=== PATIENT | female | born 1965 | race Caucasian/White ===

== ENCOUNTER 2024-07-01 11:24 | Observation (INO) | payer OTHER ==
[2024-07-01 12:07] LABS: Absolute Neutrophil Ct (ANC) 2.99 x10^3/uL (1.56-6.13); BASOPHIL % 1.2 % (0.1-1.2); Basophil (Absolute #) 0.07 x10^3/uL (0.01-0.08); Eosinophil (Absolute #) 0.06 x10^3/uL (0.04-0.36); Hematocrit 24.9 % (34.1-44.9); IMMATURE GRAN # 0.02 x10^3u/L (0.001-0.031); IMMATURE GRAN % 0.3 % (0.001-0.429); Lymphocyte (Absolute #) 2.21 x10^3/uL (1.18-3.74); Lymphocytes % 38.5 % (19.3-51.7); Mean Cell Volume 59.3 fL (79.4-94.8); Mean Corpuscular Hgb Concent. 25.3 g/dL (32.2-35.5); Mean Platelet Volume 9.9 fL (9.4-12.3); Monocyte (Absolute #) 0.39 x10^3/uL (0.24-0.86); Monocytes % 6.8 % (4.7-12.5); Neutrophil % 52.2 % (34.0-71.1); Platelet Count 441 x10^3/uL (182-369); Red Cell Distribution Width 19.7 % (11.7-14.4); White Blood Count 5.7 x10^3/uL (3.98-10.04)
[2024-07-01 12:12] LABS: Hemoglobin 6.3 g/dL (11.2-15.7)
[2024-07-01 12:15] LABS: ISTAT K 3.6 mmol/L (3.5-4.9); ISTAT iCA 1.23 mmol/L (1.12-1.32)
[2024-07-01 12:16] LABS: ISTAT CREA 0.8 mg/dL (0.6-1.3)
[2024-07-01 12:32] LABS: INR 0.93 (0.8-3.0); PROTIME 10.2 SECONDS (9.4-12.5); PTT < 20.0 SECONDS (25.1-36.5)
[2024-07-01] MEDS ORDERED: PROTONIX 40 MG IV IV ONE (12:34)
[2024-07-01] MEDS: PROTONIX 40 MG IV IV ONE (12:37)
--- NOTE | 2024-07-01 12:48 | ERPHSYRPT ---
- History of Present Illness Time Seen by Provider: 07/01/24 11:40 Source: patient Exam Limitations: no limitations Patient Subjective Stated Complaint: Pt reports she was called by Dr Aida Powell's office and instructed to come to the ED for abnormal hgb result on blood work that was drawn on 06/30/24. Triage Nursing Assessment: Pt alert and oriented x3. Respirations easy/nonlabored. Skin w/p/d. Ambulated to ED cot without difficulty. Reports she does experience some fatigue and shortness of breath at rest and with exertion as of late. Denies any dizziness, lightheaded. Pt denies ever having transfusion in the past. Physician History: 59-year-old female with history of GERD, hypertension, chronic anemia presented in the ER after primary care had blood work done yesterday which showed hemoglobin of 6.6. Patient denies any chest pain or palpitations but reports feeling fatigued and tired/woren out with minimal activity. Does report having history of acid reflux/heartburn send take Nexium but not well-controlled. Has history of dark stool which she attributes to iron tablets. No abdominal pain nausea or vomiting. 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 Allergies/Adverse Reactions: No Known Drug Allergies Allergy (Verified 07/01/24 11:38) Home Medications: Benazepril HCl [Lotensin] 10 mg PO DAILY 04/14/13 [History] Ferrous Sulfate 325 mg [Feosol 325 mg] 325 mg PO TID 04/14/13 [History] Levothyroxine Sodium 75 Mcg [Synthroid 75 Mcg] 150 mcg PO DAILY 04/14/13 [History] Trazodone HCl 50 mg [Desyrel 50 mg] 50 mg PO HS 04/15/13 [History] Acetaminophen 500 mg [Tylenol Extra Strength 500 mg] 100 mg PO Q6HPRN PRN 07/01/24 [History] Albuterol Sulfate [Albuterol Sulfate Hfa] 1 puff IH Q4H PRN PRN 07/01/24 [History] Budesonide/Glycopyr/Formoterol [Breztri Aerosphere Inhaler] 2 puff IH BID 07/01/24 [History] Esomeprazole Magnesium [Nexium 24Hr] 1 cap PO DAILY 07/01/24 [History] Ezetimibe 10 mg [Zetia 10 MG] 1 tab PO DAILY 07/01/24 [History] Hx Tetanus, Diphtheria Vaccination/Date Given: (unknown) Hx Influenza Vaccination/Date Given: No Travel Risk - International Travel Have you traveled outside of the country in past 3 weeks: No - Emerging Infectious Disease Are you exhibiting symptoms associated with any current EIDs: No - Review of Systems Constitutional: Fatigue, Weakness Eyes: No Symptoms Ears, Nose, & Throat: No Symptoms Respiratory: Dyspnea Cardiac: No Symptoms Abdominal/Gastrointestinal: No Symptoms Genitourinary Symptoms: No Symptoms Musculoskeletal: No Symptoms Skin: No Symptoms Neurological: No Symptoms Hematologic/Lymphatic: Anemia Immunological/Allergic: No Symptoms - Past Medical History Pertinent Past Medical History: Yes Neurological History: Migraines ENT History: No Pertinent History Cardiac History: High Cholesterol, Hypertension Respiratory History: No Pertinent History Endocrine Medical History: Hypothyroidism Musculoskeletal History: No Pertinent History GI Medical History: Hernia, Other History: No Pertinent History Psycho-Social History: No Pertinent History Female Reproductive Disorders: No Pertinent History Other Medical History: anemia,heartburn - Past Surgical History Past Surgical History: Yes Neuro Surgical History: No Pertinent History Cardiac: No Pertinent History Respiratory: No Pertinent History Gastrointestinal: No Pertinent History Genitourinary: No Pertinent History Musculoskeletal: Orthopedic Surgery Female Surgical History: Section Other Surgical History: rt ankle plates and screws placed-fx - Social History Smoking Status: Former smoker Exposure to second hand smoke: No Drug Use: none - Social Determinants of Health Will the patient participate in the screening: Declined to provide - Nursing Vital Signs Nursing Vital Signs: Initial Vital Signs Temperature 97.5 F 07/01/24 11:31 Pulse Rate 83 07/01/24 11:31 Respiratory Rate 16 07/01/24 11:31 Blood Pressure 151/64 07/01/24 11:31 O2 Sat by Pulse Oximetry 100 07/01/24 11:31 Pain Scale Pain Intensity 1 - Physical Exam General Appearance: no apparent distress, alert Eye Exam: pale conjunctivae Ears, Nose, Throat Exam: normal ENT inspection Neck Exam: normal inspection, non-tender, supple, full range of motion Respiratory Exam: normal breath sounds, lungs clear Cardiovascular Exam: regular rate/rhythm, normal heart sounds Gastrointestinal/Abdomen Exam: soft, normal bowel sounds, No tenderness Back Exam: normal inspection, normal range of motion Extremity Exam: normal inspection, normal range of motion Neurologic Exam: alert, oriented x 3, cooperative, lopper II-XII nml as tested Skin Exam: normal color SpO2 Interpretation: normal SpO2: 100 O2 Delivery: Room Air Ordered Tests: Active Orders 24 hr Category Date Time Status Bedrest ROUTINE Activity 07/01/24 14:20 Active Up With Assistance ROUTINE Activity 07/01/24 14:20 Active Call Admit Doctor for Orders ON ADMISSION Care 07/01/24 14:20 Active Code Status Order ROUTINE Care 07/01/24 14:20 Active Fall Protocol ROUTINE Care 07/01/24 14:[address] in Observation ROUTINE Care 07/01/24 14:20 Active Telemetry q6h Care 07/01/24 14:20 Active UA W/RFX UR CULTURE Stat Lab 07/01/24 12:44 Completed Pulse Oximetry CONTINUOUS RT 07/01/24 14:20 Completed Medication Summary Generic Name Dose Route Start Last Admin Trade Name Freq PRN Reason Stop Dose Admin Acetaminophen 650 mg 07/01/24 15:46 07/02/24 11:34 Acetaminophen 325 Mg Tablet PO 07/31/24 15:45 650 mg Q4H PRN PRN Administration PAIN, FEVER, HEADACHE Albuterol Sulfate 1 puff 07/01/24 15:49 Albuterol Common Canister Inhaler IH 07/31/24 15:48 Q4H PRN PRN SHORTNESS OF BREATH Benazepril HCl 10 mg 07/02/24 10:00 07/02/24 09:44 Benazepril Hcl 10 Mg Tablet PO 08/01/24 09:59 10 mg DAILY NEETU Administration Ezetimibe 10 mg 07/02/24 10:00 07/02/24 09:45 Ezetimibe 10 Mg Tab PO 08/01/24 09:59 10 mg DAILY NEETU Administration Ferrous Sulfate 325 mg 07/01/24 16:00 07/02/24 09:46 Ferrous Sulfate 325 Mg Tablet PO 07/31/24 15:59 325 mg TID NEETU Administration Iron Sucrose 200 mg/ Sodium 110 mls @ 220 mls/hr 07/02/24 10:00 07/02/24 09:44 Chloride IV 07/10/24 10:29 220 mls/hr Q48H NEETU Administration Levothyroxine Sodium 150 mcg 07/02/24 10:00 07/02/24 09:46 Levothyroxine Sodium 150 Mcg Tablet PO 08/01/24 09:59 150 mcg DAILY NEETU Administration Ondansetron HCl 4 mg 07/01/24 15:46 Ondansetron Hcl 4 Mg/2 Ml Vial IV 07/31/24 15:45 Q6H PRN PRN NAUSEA/VOMITING Pantoprazole Sodium 40 mg 07/01/24 22:00 07/02/24 09:44 Pantoprazole 40 Mg Vial IV 07/31/24 21:59 40 mg BID NEETU Administration Trazodone HCl 50 mg 07/01/24 22:00 07/01/24 22:56 Trazodone Hcl 50 Mg Tablet PO 07/31/24 21:59 50 mg HS NEETU Administration Discontinued Medications Generic Name Dose Route Start Last Admin Trade Name Freq PRN Reason Stop Dose Admin Furosemide 20 mg 07/01/24 23:00 07/01/24 22:57 Furosemide 20 Mg/Vial IV 07/01/24 23:01 20 mg ONCE ONE Administration Pantoprazole Sodium 80 mg/ 500 mls @ 50 mls/hr 07/01/24 12:30 07/01/24 13:02 Sodium Chloride IV 07/31/24 12:29 50 ml/hr .Q10H NEETU 50 mls/hr Administration Sodium Chloride Confirm 07/01/24 16:53 Sodium Chloride 0.9% 1000 Ml Administered 07/01/24 16:54 Dose 1,000 mls @ ud .ROUTE [employer] ONE Miscellaneous Information 1 each 07/01/24 16:15 Medication Intervention 1 Each Each 07/31/24 16:14 .RN TO CHECK NEETU Pantoprazole Sodium 40 mg 07/01/24 12:18 07/01/24 12:37 Pantoprazole 40 Mg Vial IV 07/01/24 12:19 40 mg STAT ONE Administration Pantoprazole Sodium Confirm 07/01/24 12:34 Pantoprazole 40 Mg Vial Administered 07/01/24 12:35 Dose 40 mg IV .STK-MED ONE Lab/Rad Data: Laboratory Result Diagrams 07/01/24 11:51 07/01/24 11:51 Laboratory Results 01/08/25 01/08/25 01/08/25 Range/Units 12:51 12:51 12:44 WBC (3.98-10.04) x10^3/uL RBC (3.93-5.22) x10^6/uL Hgb (11.2-15.7) g/dL Hct (34.1-44.9) % MCV (79.4-94.8) fL MCH (25.6-32.2) pg MCHC (32.2-35.5) g/dL RDW (11.7-14.4) % Plt Count (182-369) x10^3/uL MPV (9.4-12.3) fL Gran % (34.0-71.1) % Immature Gran % (Auto) (0.001-0.429) % Nucleat RBC Rel Count (0.00-0.2) % Eos # (Auto) (0.04-0.36) x10^3/uL Immature Gran # (Auto) (0.001-0.031) x10^3u/L Absolute Lymphs (auto) (1.18-3.74) x10^3/uL Absolute Monos (auto) (0.24-0.86) x10^3/uL Absolute Nucleated RBC (0.00-0.012) x10^3u/L Lymphocytes % (19.3-51.7) % Monocytes % (4.7-12.5) % Eosinophils % (0.7-5.8) % Basophils % (0.1-1.2) % Absolute Granulocytes (1.56-6.13) x10^3/uL Basophils # (0.01-0.08) x10^3/uL PT (9.4-12.5) SECONDS INR (0.8-3.0) APTT (25.1-36.5) SECONDS Sodium Direct (138-146) mmol/L Potassium (3.5-4.9) mmol/L Chloride (98-109) mmol/L Carbon Dioxide (24-29) mmol/L Venous BUN (8-26) mg/dL Creatinine (0.6-1.3) mg/dL Glucose (70-105) mg/dL Ionized Calcium (1.12-1.32) mmol/L Iron 28 L (37-170) ug/dL TIBC 546 H (265-462) ug/dL Iron Saturation 5 L (20-39) % Ferritin 3.19 L (11.1-264) ng/mL Vitamin B12 376 (239-931) pg/mL Folic Acid 6.76 (2.76 - >20) ng/mL Urine Color Yellow (Yellow) Urine Appearance Clear (Clear) Urine pH 7.0 (4.6-8.0) Ur Specific Wentworth <=1.005 (1.005-1.030) Urine Protein Negative (Negative) Urine Glucose (UA) Negative (Negative) mg/dL Urine Ketones Negative (Negative) Urine Blood Negative (Negative) Urine Nitrite Negative (Negative) Urine Bilirubin Negative (Negative) Urine Urobilinogen 0.2 (0.2) mg/dL Ur Leukocyte Esterase Negative (Negative) U Hyaline Cast (Auto) NONE SEEN (0-2) /LPF Urine Microscopic RBC 0-2 (0-5) /HPF Urine Microscopic WBC 0-2 (0-5) /HPF Ur Epithelial Cells None Seen (None Seen) /HPF Urine Bacteria None Seen (None Seen) /HPF Urine Culture Reflexed NO (NO) Stl Occult Blood (IFOB) (NEGATIVE) Slides for Path Review ABO Group Rh Factor Antibody Screen (NEGATIVE) Crossmatch (COMPATIBLE) 07/01/24 07/01/24 07/01/24 Range/Units 12:15 11:51 11:51 WBC (3.98-10.04) x10^3/uL RBC (3.93-5.22) x10^6/uL Hgb (11.2-15.7) g/dL Hct (34.1-44.9) % MCV (79.4-94.8) fL MCH (25.6-32.2) pg MCHC (32.2-35.5) g/dL RDW (11.7-14.4) % Plt Count (182-369) x10^3/uL MPV (9.4-12.3) fL Gran % (34.0-71.1) % Immature Gran % (Auto) (0.001-0.429) % Nucleat RBC Rel Count (0.00-0.2) % Eos # (Auto) (0.04-0.36) x10^3/uL Immature Gran # (Auto) (0.001-0.031) x10^3u/L Absolute Lymphs (auto) (1.18-3.74) x10^3/uL Absolute Monos (auto) (0.24-0.86) x10^3/uL Absolute Nucleated RBC (0.00-0.012) x10^3u/L Lymphocytes % (19.3-51.7) % Monocytes % (4.7-12.5) % Eosinophils % (0.7-5.8) % Basophils % (0.1-1.2) % Absolute Granulocytes (1.56-6.13) x10^3/uL Basophils # (0.01-0.08) x10^3/uL PT 10.2 (9.4-12.5) SECONDS INR 0.93 (0.8-3.0) APTT < 20.0 L (25.1-36.5) SECONDS Sodium Direct (138-146) mmol/L Potassium (3.5-4.9) mmol/L Chloride (98-109) mmol/L Carbon Dioxide (24-29) mmol/L Venous BUN (8-26) mg/dL Creatinine (0.6-1.3) mg/dL Glucose (70-105) mg/dL Ionized Calcium (1.12-1.32) mmol/L Iron (37-170) ug/dL TIBC (265-462) ug/dL Iron Saturation (20-39) % Ferritin (11.1-264) ng/mL Vitamin B12 (239-931) pg/mL Folic Acid (2.76 - >20) ng/mL Urine Color (Yellow) Urine Appearance (Clear) Urine pH (4.6-8.0) Ur Specific Wentworth (1.005-1.030) Urine Protein (Negative) Urine Glucose (UA) (Negative) mg/dL Urine Ketones (Negative) Urine Blood (Negative) Urine Nitrite (Negative) Urine Bilirubin (Negative) Urine Urobilinogen (0.2) mg/dL Ur Leukocyte Esterase (Negative) U Hyaline Cast (Auto) (0-2) /LPF Urine Microscopic RBC (0-5) /HPF Urine Microscopic WBC (0-5) /HPF Ur Epithelial Cells (None Seen) /HPF Urine Bacteria (None Seen) /HPF Urine Culture Reflexed (NO) Stl Occult Blood (IFOB) (NEGATIVE) Slides for Path Review ABO Group Rh Factor Antibody Screen (NEGATIVE) Crossmatch COMPATIBLE COMPATIBLE (COMPATIBLE) 07/01/24 07/01/24 07/01/24 Range/Units 11:51 11:51 11:51 WBC 5.7 (3.98-10.04) x10^3/uL RBC 4.20 (3.93-5.22) x10^6/uL Hgb 6.3 L* (11.2-15.7) g/dL Hct 24.9 L (34.1-44.9) % MCV 59.3 L (79.4-94.8) fL MCH 15.0 L (25.6-32.2) pg MCHC 25.3 L (32.2-35.5) g/dL RDW 19.7 H (11.7-14.4) % Plt Count 441 H (182-369) x10^3/uL MPV 9.9 (9.4-12.3) fL Gran % 52.2 (34.0-71.1) % Immature Gran % (Auto) 0.3 (0.001-0.429) % Nucleat RBC Rel Count 0.0 (0.00-0.2) % Eos # (Auto) 0.06 (0.04-0.36) x10^3/uL Immature Gran # (Auto) 0.02 (0.001-0.031) x10^3u/L Absolute Lymphs (auto) 2.21 (1.18-3.74) x10^3/uL Absolute Monos (auto) 0.39 (0.24-0.86) x10^3/uL Absolute Nucleated RBC 0.00 (0.00-0.012) x10^3u/L Lymphocytes % 38.5 (19.3-51.7) % Monocytes % 6.8 (4.7-12.5) % Eosinophils % 1.0 (0.7-5.8) % Basophils % 1.2 (0.1-1.2) % Absolute Granulocytes 2.99 (1.56-6.13) x10^3/uL Basophils # 0.07 (0.01-0.08) x10^3/uL PT (9.4-12.5) SECONDS INR (0.8-3.0) APTT (25.1-36.5) SECONDS Sodium Direct 140 (138-146) mmol/L Potassium 3.6 (3.5-4.9) mmol/L Chloride 104 (98-109) mmol/L Carbon Dioxide 24 (24-29) mmol/L Venous BUN 8 (8-26) mg/dL Creatinine 0.8 (0.6-1.3) mg/dL Glucose 107 H (70-105) mg/dL Ionized Calcium 1.23 (1.12-1.32) mmol/L Iron (37-170) ug/dL TIBC (265-462) ug/dL Iron Saturation (20-39) % Ferritin (11.1-264) ng/mL Vitamin B12 (239-931) pg/mL Folic Acid (2.76 - >20) ng/mL Urine Color (Yellow) Urine Appearance (Clear) Urine pH (4.6-8.0) Ur Specific Wentworth (1.005-1.030) Urine Protein (Negative) Urine Glucose (UA) (Negative) mg/dL Urine Ketones (Negative) Urine Blood (Negative) Urine Nitrite (Negative) Urine Bilirubin (Negative) Urine Urobilinogen (0.2) mg/dL Ur Leukocyte Esterase (Negative) U Hyaline Cast (Auto) (0-2) /LPF Urine Microscopic RBC (0-5) /HPF Urine Microscopic WBC (0-5) /HPF Ur Epithelial Cells (None Seen) /HPF Urine Bacteria (None Seen) /HPF Urine Culture Reflexed (NO) Stl Occult Blood (IFOB) (NEGATIVE) Slides for Path Review YES ABO Group A Rh Factor POSITIVE Antibody Screen NEGATIVE (NEGATIVE) Crossmatch (COMPATIBLE) 07/01/24 Range/Units 10:06 WBC (3.98-10.04) x10^3/uL RBC (3.93-5.22) x10^6/uL Hgb (11.2-15.7) g/dL Hct (34.1-44.9) % MCV (79.4-94.8) fL MCH (25.6-32.2) pg MCHC (32.2-35.5) g/dL RDW (11.7-14.4) % Plt Count (182-369) x10^3/uL MPV (9.4-12.3) fL Gran % (34.0-71.1) % Immature Gran % (Auto) (0.001-0.429) % Nucleat RBC Rel Count (0.00-0.2) % Eos # (Auto) (0.04-0.36) x10^3/uL Immature Gran # (Auto) (0.001-0.031) x10^3u/L Absolute Lymphs (auto) (1.18-3.74) x10^3/uL Absolute Monos (auto) (0.24-0.86) x10^3/uL Absolute Nucleated RBC (0.00-0.012) x10^3u/L Lymphocytes % (19.3-51.7) % Monocytes % (4.7-12.5) % Eosinophils % (0.7-5.8) % Basophils % (0.1-1.2) % Absolute Granulocytes (1.56-6.13) x10^3/uL Basophils # (0.01-0.08) x10^3/uL PT (9.4-12.5) SECONDS INR (0.8-3.0) APTT (25.1-36.5) SECONDS Sodium Direct (138-146) mmol/L Potassium (3.5-4.9) mmol/L Chloride (98-109) mmol/L Carbon Dioxide (24-29) mmol/L Venous BUN (8-26) mg/dL Creatinine (0.6-1.3) mg/dL Glucose (70-105) mg/dL Ionized Calcium (1.12-1.32) mmol/L Iron (37-170) ug/dL TIBC (265-462) ug/dL Iron Saturation (20-39) % Ferritin (11.1-264) ng/mL Vitamin B12 (239-931) pg/mL Folic Acid (2.76 - >20) ng/mL Urine Color (Yellow) Urine Appearance (Clear) Urine pH (4.6-8.0) Ur Specific Wentworth (1.005-1.030) Urine Protein (Negative) Urine Glucose (UA) (Negative) mg/dL Urine Ketones (Negative) Urine Blood (Negative) Urine Nitrite (Negative) Urine Bilirubin (Negative) Urine Urobilinogen (0.2) mg/dL Ur Leukocyte Esterase (Negative) U Hyaline Cast (Auto) (0-2) /LPF Urine Microscopic RBC (0-5) /HPF Urine Microscopic WBC (0-5) /HPF Ur Epithelial Cells (None Seen) /HPF Urine Bacteria (None Seen) /HPF Urine Culture Reflexed (NO) Stl Occult Blood (IFOB) NEGATIVE (NEGATIVE) Slides for Path Review ABO Group Rh Factor Antibody Screen (NEGATIVE) Crossmatch (COMPATIBLE) - Progress Progress: unchanged, re-examined Progress Note: 07/01/24 13:38 59-year-old with history of Karl's thyroiditis, hypertension, GERD is evaluated in the ER for low hemoglobin with feeling of fatigue and tiredness. No obvious source of blood loss. Patient does not have any workup done in the past. Repeat hemoglobin 6.3, went over risk and benefits of transfusion and she is okay with 2 units transfusion of packed RBCs. Chemistries fairly unremarkable, coags fairly normal Patient is not in any distress, do not think needs any imaging, does need multifactorial workup to find out the cause of her anemia. Discussed with Dr. Peña, reviewed history, workup and agreed with admission. Shared the results of workup with patient and family and plan of admission which they understand and agree. Discussed with Dr.: Other (Dr. Peña hospitalist) Will see patient in: hospital (observation) Counseled pt/family regarding: lab results, diagnosis Medical Desision Making - Independent Historian Additional History obtained from: Spouse - Discussion of managment Care discussed with:: hospitalist Reviewed:: Test results Agreed on:: Treatment plan Will see patient: in hospital - Diagnostic Testing Diagnostic test were ordered, analyzed, and reviewed by me: Yes - Risk of complications The pt has a mod risk of morbidity or mortality based on: Need for prescription drug management The pt has a high risk of morbidity or mortality based on: Decision regarding hospitilization or escalation of hosp level of care - Departure Departure Disposition: Observation Clinical Impression: Symptomatic anemia Condition: Stable Critical Care Time: No
[2024-07-01 12:56] LABS: Appearance Clear (Clear); Bacteria None Seen /HPF (None Seen); Bilirubin Negative (Negative); Blood Negative (Negative); Epithelial Cells None Seen /HPF (None Seen); Glucose, Urine Negative (Negative); Hyaline Casts NONE SEEN /LPF (0-2); Ketones Negative (Negative); Leukocyte Esterase Negative (Negative); Nitrite Negative (Negative); Protein,Urine Dip Negative (Negative); RBC 0-2 /HPF (0-5); Specific Gravity <=1.005 (1.005-1.030); Urobilinogen 0.2 mg/dL (0.2); WBC 0-2 /HPF (0-5)
[2024-07-01] MEDS: PROTONIX 40 MG IV*** 80 MG in Sodium Chloride 0.9% 500 ML 500 ML IV SCH (13:02)
[2024-07-01 13:37] LABS: ABO TYPING A; Antibody Screen NEGATIVE (NEGATIVE); RH TYPING POSITIVE
[2024-07-01 13:41] LABS: CROSS MATCH (PRBC) COMPATIBLE (COMPATIBLE)
[2024-07-01 13:42] LABS: CROSS MATCH (PRBC) COMPATIBLE (COMPATIBLE)
--- NOTE | 2024-07-01 15:06 | PCM.HP ---
History of Present Illness - Chief Complaint Chief Complaint: Symptomatic anemia Date: 07/01/24 History of Present Illness: is a 59 year old female with a pmhx of HLD, HTN, hypothyroidism, and chronic anemia who presented to ED 07/01/24 under the advisement of her PCP after lab work was remarkable for hgb of 6.6. Patient states she had labwork back in March that showed a hgb of 7.4. She did not have insurance at that time and was unable to follow up. She reports that she is set up for an EGD/colonoscopy 07/13/24. She does endorse shortness of breath with exertion and fatigue but attributes it to her thyroid and hernia. She has had dark stools but was taking ferrous sulfate. At one time she had hemorrhoids with BRB when she wiped but has not had this in some time. Denies fever,hematuria, hematochezia, hematemesis, kim bleeding, cough, sob, cp, abdominal pain, ATKINSON, dizziness, N/V/D. Upon arrival vitals stable. Labs remarkable for hgb of 6.3. Chemistries and u/a unremarkable. Admission for symptomatic anemia. Plan for 2 units of PRBC. Will order iron studies off blood in lab and collect stools for occult blood. Possible surgery consult pending results. - Review of Systems Constitutional: Fatigue Eyes: No Symptoms Ears, Nose, & Throat: No Symptoms Respiratory: Short Of Breath Cardiac: Edema (BLE +3 pitting ) Abdominal/Gastrointestinal: Constipation Genitourinary Symptoms: No Symptoms Musculoskeletal: No Symptoms Skin: No Symptoms Neurological: No Symptoms Psychological: No Symptoms Endocrine: No Symptoms Hematologic/Lymphatic: Anemia Immunological/Allergic: No Symptoms Medications & Allergies Home Medications: Home Medication List Benazepril HCl [Lotensin 10 MG] 10 mg PO DAILY 04/14/13 [History Confirmed 07/01/24] Ferrous Sulfate 325 mg [Feosol 325 mg] 325 mg PO TID 04/14/13 [History Confirmed 07/01/24] Levothyroxine Sodium 75 Mcg [Synthroid 75 Mcg] 150 mcg PO DAILY 04/14/13 [History Confirmed 07/01/24] Trazodone HCl 50 mg [Desyrel 50 mg] 50 mg PO HS 04/15/13 [History Confirmed 07/01/24] Acetaminophen 500 mg [Tylenol Extra Strength 500 mg] 100 mg PO Q6HPRN PRN 07/01/24 [History Confirmed 07/01/24] Albuterol Sulfate [Albuterol Sulfate Hfa] 1 puff IH Q4H PRN PRN 07/01/24 [History Confirmed 07/01/24] Budesonide/Glycopyr/Formoterol [Breztri Aerosphere Inhaler] 2 puff IH BID 07/01/24 [History Confirmed 07/01/24] Esomeprazole Magnesium [Nexium 24Hr] 1 cap PO DAILY 07/01/24 [History Confirmed 07/01/24] Ezetimibe 10 mg [Zetia 10 MG] 1 tab PO DAILY 07/01/24 [History Confirmed 07/01/24] Allergies/Adverse Reactions: Allergies Allergy/AdvReac Type Severity Reaction Status Date / Time No Known Drug Allergies Allergy Verified 07/01/24 11:38 - Past Medical History Past Medical History: Yes Neurological History: Migraines ENT History: No Pertinent History Cardiac History: High Cholesterol, Hypertension Respiratory History: No Pertinent History Endocrine Medical History: Hypothyroidism Musculoskelatal History: No Pertinent History GI Medical History: Hernia, Other History: No Pertinent History Pyscho-Social History: No Pertinent History Reproductive Disorders: No Pertinent History Comment: anemia,heartburn - Past Surgical History Past Surgical History: Yes Neuro Surgical History: No Pertinent History Cardiac History: No Pertinent History Respiratory Surgery: No Pertinent History GI Surgical History: No Pertinent History Genitourinary Surgical Hx: No Pertinent History Musculskeletal Surgical Hx: Orthopedic Surgery Female Surgical History: Section Other Surgical History: rt ankle plates and screws placed-fx Significant Family History: heart disease, cancer, diabetes, other (thyroid) - Social History Smoking Status: Former smoker Exposure to second hand smoke: No Alcohol: Rarely Drug Use: none - Social Determinants of Health Will the patient participate in the screening: Declined to provide - Physical Exam Vital Signs: Vital Signs - 24 hr Temp Pulse Resp BP BP Pulse Ox 07/01/24 14:00 128/69 07/01/24 13:46 89 19 136/68 100 07/01/24 13:45 90 26 H 07/01/24 13:42 100 07/01/24 13:40 89 22 07/01/24 13:35 89 22 07/01/24 13:00 85 17 145/75 07/01/24 12:50 84 17 100 07/01/24 12:47 100 07/01/24 12:44 97 07/01/24 12:01 77 135/71 100 07/01/24 11:41 151/64 85 L 07/01/24 11:31 97.5 F 83 16 151/64 100 General Appearance: no apparent distress Neurologic Exam: alert, oriented x 3, cooperative Eye Exam: PERRL/EOMI Ears, Nose, Throat Exam: normal ENT inspection Neck Exam: normal inspection Respiratory Exam: normal breath sounds, lungs clear Cardiovascular Exam: regular rate/rhythm, normal heart sounds Gastrointestinal/Abdomen Exam: soft, normal bowel sounds Pelvic Exam: not done Rectal Exam: deferred Back Exam: normal inspection Extremity Exam: normal inspection Skin Exam: pale Results - Labs Lab/Micro Results: Lab Results-Last 24 Hours 07/01/24 07/01/24 07/01/24 Range/Units 11:51 11:51 11:51 WBC 5.7 (3.98-10.04) x10^3/uL RBC 4.20 (3.93-5.22) x10^6/uL Hgb 6.3 L* (11.2-15.7) g/dL Hct 24.9 L (34.1-44.9) % MCV 59.3 L (79.4-94.8) fL MCH 15.0 L (25.6-32.2) pg MCHC 25.3 L (32.2-35.5) g/dL RDW 19.7 H (11.7-14.4) % Plt Count 441 H (182-369) x10^3/uL MPV 9.9 (9.4-12.3) fL Gran % 52.2 (34.0-71.1) % Immature Gran % (Auto) 0.3 (0.001-0.429) % Nucleat RBC Rel Count 0.0 (0.00-0.2) % Eos # (Auto) 0.06 (0.04-0.36) x10^3/uL Immature Gran # (Auto) 0.02 (0.001-0.031) x10^3u/L Absolute Lymphs (auto) 2.21 (1.18-3.74) x10^3/uL Absolute Monos (auto) 0.39 (0.24-0.86) x10^3/uL Absolute Nucleated RBC 0.00 (0.00-0.012) x10^3u/L Lymphocytes % 38.5 (19.3-51.7) % Monocytes % 6.8 (4.7-12.5) % Eosinophils % 1.0 (0.7-5.8) % Basophils % 1.2 (0.1-1.2) % Absolute Granulocytes 2.99 (1.56-6.13) x10^3/uL Basophils # 0.07 (0.01-0.08) x10^3/uL PT (9.4-12.5) SECONDS INR (0.8-3.0) APTT (25.1-36.5) SECONDS Sodium Direct 140 (138-146) mmol/L Potassium 3.6 (3.5-4.9) mmol/L Chloride 104 (98-109) mmol/L Carbon Dioxide 24 (24-29) mmol/L Venous BUN 8 (8-26) mg/dL Creatinine 0.8 (0.6-1.3) mg/dL Glucose 107 H (70-105) mg/dL Ionized Calcium 1.23 (1.12-1.32) mmol/L Urine Color (Yellow) Urine Appearance (Clear) Urine pH (4.6-8.0) Ur Specific West (1.005-1.030) Urine Protein (Negative) Urine Glucose (UA) (Negative) mg/dL Urine Ketones (Negative) Urine Blood (Negative) Urine Nitrite (Negative) Urine Bilirubin (Negative) Urine Urobilinogen (0.2) mg/dL Ur Leukocyte Esterase (Negative) U Hyaline Cast (Auto) (0-2) /LPF Urine Microscopic RBC (0-5) /HPF Urine Microscopic WBC (0-5) /HPF Ur Epithelial Cells (None Seen) /HPF Urine Bacteria (None Seen) /HPF Urine Culture Reflexed (NO) ABO Group A Rh Factor POSITIVE Antibody Screen NEGATIVE (NEGATIVE) Crossmatch (COMPATIBLE) 07/01/24 07/01/24 07/01/24 Range/Units 11:51 11:51 12:15 WBC (3.98-10.04) x10^3/uL RBC (3.93-5.22) x10^6/uL Hgb (11.2-15.7) g/dL Hct (34.1-44.9) % MCV (79.4-94.8) fL MCH (25.6-32.2) pg MCHC (32.2-35.5) g/dL RDW (11.7-14.4) % Plt Count (182-369) x10^3/uL MPV (9.4-12.3) fL Gran % (34.0-71.1) % Immature Gran % (Auto) (0.001-0.429) % Nucleat RBC Rel Count (0.00-0.2) % Eos # (Auto) (0.04-0.36) x10^3/uL Immature Gran # (Auto) (0.001-0.031) x10^3u/L Absolute Lymphs (auto) (1.18-3.74) x10^3/uL Absolute Monos (auto) (0.24-0.86) x10^3/uL Absolute Nucleated RBC (0.00-0.012) x10^3u/L Lymphocytes % (19.3-51.7) % Monocytes % (4.7-12.5) % Eosinophils % (0.7-5.8) % Basophils % (0.1-1.2) % Absolute Granulocytes (1.56-6.13) x10^3/uL Basophils # (0.01-0.08) x10^3/uL PT 10.2 (9.4-12.5) SECONDS INR 0.93 (0.8-3.0) APTT < 20.0 L (25.1-36.5) SECONDS Sodium Direct (138-146) mmol/L Potassium (3.5-4.9) mmol/L Chloride (98-109) mmol/L Carbon Dioxide (24-29) mmol/L Venous BUN (8-26) mg/dL Creatinine (0.6-1.3) mg/dL Glucose (70-105) mg/dL Ionized Calcium (1.12-1.32) mmol/L Urine Color (Yellow) Urine Appearance (Clear) Urine pH (4.6-8.0) Ur Specific West (1.005-1.030) Urine Protein (Negative) Urine Glucose (UA) (Negative) mg/dL Urine Ketones (Negative) Urine Blood (Negative) Urine Nitrite (Negative) Urine Bilirubin (Negative) Urine Urobilinogen (0.2) mg/dL Ur Leukocyte Esterase (Negative) U Hyaline Cast (Auto) (0-2) /LPF Urine Microscopic RBC (0-5) /HPF Urine Microscopic WBC (0-5) /HPF Ur Epithelial Cells (None Seen) /HPF Urine Bacteria (None Seen) /HPF Urine Culture Reflexed (NO) ABO Group Rh Factor Antibody Screen (NEGATIVE) Crossmatch COMPATIBLE COMPATIBLE (COMPATIBLE) 07/01/24 Range/Units 12:44 WBC (3.98-10.04) x10^3/uL RBC (3.93-5.22) x10^6/uL Hgb (11.2-15.7) g/dL Hct (34.1-44.9) % MCV (79.4-94.8) fL MCH (25.6-32.2) pg MCHC (32.2-35.5) g/dL RDW (11.7-14.4) % Plt Count (182-369) x10^3/uL MPV (9.4-12.3) fL Gran % (34.0-71.1) % Immature Gran % (Auto) (0.001-0.429) % Nucleat RBC Rel Count (0.00-0.2) % Eos # (Auto) (0.04-0.36) x10^3/uL Immature Gran # (Auto) (0.001-0.031) x10^3u/L Absolute Lymphs (auto) (1.18-3.74) x10^3/uL Absolute Monos (auto) (0.24-0.86) x10^3/uL Absolute Nucleated RBC (0.00-0.012) x10^3u/L Lymphocytes % (19.3-51.7) % Monocytes % (4.7-12.5) % Eosinophils % (0.7-5.8) % Basophils % (0.1-1.2) % Absolute Granulocytes (1.56-6.13) x10^3/uL Basophils # (0.01-0.08) x10^3/uL PT (9.4-12.5) SECONDS INR (0.8-3.0) APTT (25.1-36.5) SECONDS Sodium Direct (138-146) mmol/L Potassium (3.5-4.9) mmol/L Chloride (98-109) mmol/L Carbon Dioxide (24-29) mmol/L Venous BUN (8-26) mg/dL Creatinine (0.6-1.3) mg/dL Glucose (70-105) mg/dL Ionized Calcium (1.12-1.32) mmol/L Urine Color Yellow (Yellow) Urine Appearance Clear (Clear) Urine pH 7.0 (4.6-8.0) Ur Specific West <=1.005 (1.005-1.030) Urine Protein Negative (Negative) Urine Glucose (UA) Negative (Negative) mg/dL Urine Ketones Negative (Negative) Urine Blood Negative (Negative) Urine Nitrite Negative (Negative) Urine Bilirubin Negative (Negative) Urine Urobilinogen 0.2 (0.2) mg/dL Ur Leukocyte Esterase Negative (Negative) U Hyaline Cast (Auto) NONE SEEN (0-2) /LPF Urine Microscopic RBC 0-2 (0-5) /HPF Urine Microscopic WBC 0-2 (0-5) /HPF Ur Epithelial Cells None Seen (None Seen) /HPF Urine Bacteria None Seen (None Seen) /HPF Urine Culture Reflexed NO (NO) ABO Group Rh Factor Antibody Screen (NEGATIVE) Crossmatch (COMPATIBLE) Assessment/Plan (1) Symptomatic anemia Current Visit: Yes Status: Acute Assessment & Plan: -CBC reviewed at 6.3 -TXM for 2 units of LPRBC with CBC 1 hour after transfusion -monitor closely- transfuse if hgb <7 -iron studies - patient previously on ferrous sulfate - stopped one week ago -occult stools -consider surgery consult -colonoscopy/egd scheduled OP for 07/13/24 -Avoid ASA/NSAIDS Code(s): D64.9 - ANEMIA, UNSPECIFIED (2) HTN (hypertension) Current Visit: Yes Status: Acute Assessment & Plan: -stable continue home meds Code(s): I10 - ESSENTIAL (PRIMARY) HYPERTENSION (3) HLD (hyperlipidemia) Current Visit: Yes Status: Acute Assessment & Plan: -continue Zetia Code(s): E78.5 - HYPERLIPIDEMIA, UNSPECIFIED (4) Chronic anemia Current Visit: Yes Status: Acute Assessment & Plan: -see symptomatic anemia Code(s): D64.9 - ANEMIA, UNSPECIFIED (5) Hypothyroid Current Visit: Yes Status: Acute Assessment & Plan: -continue home levothyroxine Code(s): E03.9 - HYPOTHYROIDISM, UNSPECIFIED (6) GERD (gastroesophageal reflux disease) Current Visit: Yes Status: Acute Assessment & Plan: -continue Protonix VTE: scd PPI: protonix Dispo: 1-2 days Code status: full Code(s): K21.9 - GASTRO-ESOPHAGEAL REFLUX DISEASE WITHOUT ESOPHAGITIS Telemedicine Encounter - Telemedicine Encounter Telemedicine Encounter: "The entirety of this encounter was performed via Telemedicine" This visit was performed using real-time audio and video connection between my location and thepatients locationwith the assistance of a surrogateat the patients location. Written or verbal consent was obtained from the patient/guardian to perform this visit [facility] technology. Any patient questions regarding the telemedicine interaction were answered.
[2024-07-01] MEDS ORDERED: Zofran 4 MG/2 ML VIAL IV PRN (15:46)
[2024-07-01] MEDS ORDERED: VENTOLIN COMMON CANISTER IH PRN (15:49)
[2024-07-01 15:56] LABS: Slide Review 1 YES
[2024-07-01] MEDS ORDERED: MEDICATION INTERVENTION MC SCH (16:15)
[2024-07-01] MEDS ORDERED: Sodium Chloride 0.9% 1000 ML 1,000 ML ONE (16:53)
[2024-07-01] MEDS: FEOSOL 325 MG PO SCH (17:36)
[2024-07-01 19:05] LABS: Iron 28 ug/dL (37-170); Iron Saturation 5 % (20-39); TIBC 546 ug/dL (265-462)
[2024-07-01 19:39] LABS: Ferritin 3.19 ng/mL (11.1-264); Folate (Folic Acid) 6.76 ng/mL (2.76 - >20)
[2024-07-01] MEDS: TYLENOL 325 MG PO PRN (19:52)
[2024-07-01] MEDS ORDERED: NON-FORMULARY ITEM (Budesonide/Glycopyr/Formoterol [Breztri Aerosphere Inhaler] 10.7 GM Hf IH SCH (22:00)
[2024-07-01] MEDS: DESYREL 50 MG PO SCH (22:56)
[2024-07-01] MEDS: PROTONIX 40 MG IV IV SCH (22:57)
[2024-07-01] MEDS: Lasix 20 MG/2 ML IV ONE (22:57)
[2024-07-02 05:11] LABS: Absolute Neutrophil Ct (ANC) 2.54 x10^3/uL (1.56-6.13); BASOPHIL % 1.5 % (0.1-1.2); Basophil (Absolute #) 0.09 x10^3/uL (0.01-0.08); Eosinophil % 1.6 % (0.7-5.8); Hematocrit 30.2 % (34.1-44.9); Hemoglobin 8.4 g/dL (11.2-15.7); IMMATURE GRAN # 0.08 x10^3u/L (0.001-0.031); IMMATURE GRAN % 1.3 % (0.001-0.429); Lymphocyte (Absolute #) 2.71 x10^3/uL (1.18-3.74); Lymphocytes % 44.5 % (19.3-51.7); Mean Cell Volume 64.3 fL (79.4-94.8); Mean Corpuscular Hemoglobin 17.9 pg (25.6-32.2); Mean Corpuscular Hgb Concent. 27.8 g/dL (32.2-35.5); Mean Platelet Volume 9.5 fL (9.4-12.3); Monocyte (Absolute #) 0.57 x10^3/uL (0.24-0.86); Monocytes % 9.4 % (4.7-12.5); Neutrophil % 41.7 % (34.0-71.1); Platelet Count 413 x10^3/uL (182-369); Red Cell Distribution Width 24.7 % (11.7-14.4); White Blood Count 6.1 x10^3/uL (3.98-10.04)
[2024-07-02 05:35] LABS: ALBUMIN 4.5 g/dL (3.5-5.0); ANION GAP 9.5 MEQ/L (5-15); BILIRUBIN,TOTAL 0.9 mg/dL (0.2-1.3); Calcium 9.3 mg/dL (8.4-10.2); Creatinine 1 0.92 mg/dL (0.52-1.04); EST GLOMERULAR FILTRATION RATE 70.8 ML/MIN; Potassium 3.5 mmol/L (3.5-5.1); Total Protein 7.7 g/dL (6.3-8.2)
--- NOTE | 2024-07-02 05:54 | PCM.NOTE ---
Date and Time: 07/02/24 0552 Subjective Assessment: is a 59 year old female with a pmhx of HLD, HTN, hypothyroidism, and chronic anemia who presented to ED 07/01/24 under the advisement of her PCP after lab work was remarkable for hgb of 6.6. Patient states she had labwork back in March that showed a hgb of 7.4. She did not have insurance at that time and was unable to follow up. She reports that she is set up for an EGD/colonoscopy 07/13/24. She does endorse shortness of breath with exertion and fatigue but attributes it to her thyroid and hernia. She has had dark stools but was taking ferrous sulfate. At one time she had hemorrhoids with BRB when she wiped but has not had this in some time. Denies fever,hematuria, hematochezia, hematemesis, kmi bleeding, cough, sob, cp, abdominal pain, ATKINSON, dizziness, N/V/D. Upon arrival vitals stable. Labs remarkable for hgb of 6.3. Chemistries and u/a unremarkable. Admission for symptomatic anemia. Plan for 2 units of PRBC. Will order iron studies off blood in lab and collect stools for occult blood. Possible surgery consult pending results. Objective Data Vital Signs: Vital Signs - 24 hr Temp Pulse Resp BP BP Pulse Ox 07/02/24 04:00 97.1 F 77 18 141/71 96 07/01/24 23:52 98.5 F 81 18 142/69 98 07/01/24 19:55 90 16 97 07/01/24 19:08 99.1 F 18 125/65 07/01/24 17:25 18 150/71 07/01/24 17:05 99 07/01/24 16:56 83 16 99 07/01/24 14:00 128/69 07/01/24 13:46 89 19 136/68 100 07/01/24 13:45 90 26 H 07/01/24 13:42 100 07/01/24 13:40 89 22 07/01/24 13:35 89 22 07/01/24 13:00 85 17 145/75 07/01/24 12:50 84 17 100 07/01/24 12:47 100 07/01/24 12:44 97 07/01/24 12:01 77 135/71 100 07/01/24 11:41 151/64 85 L 07/01/24 11:31 97.5 F 83 16 151/64 100 Pain Assessment - Last Documented Pain Intensity 0 Intake and Output: Intake & Output 06/29/24 06/30/24 07/01/24 07/02/24 11:59 11:59 11:59 11:59 Intake Total 1121 Balance 1121 Weight 99.5 kg 98.9 kg Lab Results: Lab Results-Last 24 Hours 07/01/24 07/01/24 07/01/24 Range/Units 11:51 11:51 11:51 WBC 5.7 (3.98-10.04) x10^3/uL RBC 4.20 (3.93-5.22) x10^6/uL Hgb 6.3 L* (11.2-15.7) g/dL Hct 24.9 L (34.1-44.9) % MCV 59.3 L (79.4-94.8) fL MCH 15.0 L (25.6-32.2) pg MCHC 25.3 L (32.2-35.5) g/dL RDW 19.7 H (11.7-14.4) % Plt Count 441 H (182-369) x10^3/uL MPV 9.9 (9.4-12.3) fL Gran % 52.2 (34.0-71.1) % Immature Gran % (Auto) 0.3 (0.001-0.429) % Nucleat RBC Rel Count 0.0 (0.00-0.2) % Eos # (Auto) 0.06 (0.04-0.36) x10^3/uL Immature Gran # (Auto) 0.02 (0.001-0.031) x10^3u/L Absolute Lymphs (auto) 2.21 (1.18-3.74) x10^3/uL Absolute Monos (auto) 0.39 (0.24-0.86) x10^3/uL Absolute Nucleated RBC 0.00 (0.00-0.012) x10^3u/L Lymphocytes % 38.5 (19.3-51.7) % Monocytes % 6.8 (4.7-12.5) % Eosinophils % 1.0 (0.7-5.8) % Basophils % 1.2 (0.1-1.2) % Absolute Granulocytes 2.99 (1.56-6.13) x10^3/uL Basophils # 0.07 (0.01-0.08) x10^3/uL PT (9.4-12.5) SECONDS INR (0.8-3.0) APTT (25.1-36.5) SECONDS Sodium (135-145) mmol/L Sodium Direct 140 (138-146) mmol/L Potassium 3.6 (3.5-4.9) mmol/L Chloride 104 (98-109) mmol/L Carbon Dioxide 24 (24-29) mmol/L Anion Gap (5-15) MEQ/L BUN (7-17) mg/dL Venous BUN 8 (8-26) mg/dL Creatinine 0.8 (0.6-1.3) mg/dL Estimated GFR ML/MIN Glucose 107 H (70-105) mg/dL Calcium (8.4-10.2) mg/dL Ionized Calcium 1.23 (1.12-1.32) mmol/L Iron (37-170) ug/dL TIBC (265-462) ug/dL Iron Saturation (20-39) % Ferritin (11.1-264) ng/mL Total Bilirubin (0.2-1.3) mg/dL AST (14-36) U/L ALT (0-35) U/L Alkaline Phosphatase (38-126) U/L Serum Total Protein (6.3-8.2) g/dL Albumin (3.5-5.0) g/dL Vitamin B12 (239-931) pg/mL Folic Acid (2.76 - >20) ng/mL Urine Color (Yellow) Urine Appearance (Clear) Urine pH (4.6-8.0) Ur Specific [place] (1.005-1.030) Urine Protein (Negative) Urine Glucose (UA) (Negative) mg/dL Urine Ketones (Negative) Urine Blood (Negative) Urine Nitrite (Negative) Urine Bilirubin (Negative) Urine Urobilinogen (0.2) mg/dL Ur Leukocyte Esterase (Negative) U Hyaline Cast (Auto) (0-2) /LPF Urine Microscopic RBC (0-5) /HPF Urine Microscopic WBC (0-5) /HPF Ur Epithelial Cells (None Seen) /HPF Urine Bacteria (None Seen) /HPF Urine Culture Reflexed (NO) Slides for Path Review YES ABO Group A Rh Factor POSITIVE Antibody Screen NEGATIVE (NEGATIVE) Crossmatch (COMPATIBLE) 07/01/24 07/01/24 07/01/24 Range/Units 11:51 11:51 12:15 WBC (3.98-10.04) x10^3/uL RBC (3.93-5.22) x10^6/uL Hgb (11.2-15.7) g/dL Hct (34.1-44.9) % MCV (79.4-94.8) fL MCH (25.6-32.2) pg MCHC (32.2-35.5) g/dL RDW (11.7-14.4) % Plt Count (182-369) x10^3/uL MPV (9.4-12.3) fL Gran % (34.0-71.1) % Immature Gran % (Auto) (0.001-0.429) % Nucleat RBC Rel Count (0.00-0.2) % Eos # (Auto) (0.04-0.36) x10^3/uL Immature Gran # (Auto) (0.001-0.031) x10^3u/L Absolute Lymphs (auto) (1.18-3.74) x10^3/uL Absolute Monos (auto) (0.24-0.86) x10^3/uL Absolute Nucleated RBC (0.00-0.012) x10^3u/L Lymphocytes % (19.3-51.7) % Monocytes % (4.7-12.5) % Eosinophils % (0.7-5.8) % Basophils % (0.1-1.2) % Absolute Granulocytes (1.56-6.13) x10^3/uL Basophils # (0.01-0.08) x10^3/uL PT 10.2 (9.4-12.5) SECONDS INR 0.93 (0.8-3.0) APTT < 20.0 L (25.1-36.5) SECONDS Sodium (135-145) mmol/L Sodium Direct (138-146) mmol/L Potassium (3.5-4.9) mmol/L Chloride (98-109) mmol/L Carbon Dioxide (24-29) mmol/L Anion Gap (5-15) MEQ/L BUN (7-17) mg/dL Venous BUN (8-26) mg/dL Creatinine (0.6-1.3) mg/dL Estimated GFR ML/MIN Glucose (70-105) mg/dL Calcium (8.4-10.2) mg/dL Ionized Calcium (1.12-1.32) mmol/L Iron (37-170) ug/dL TIBC (265-462) ug/dL Iron Saturation (20-39) % Ferritin (11.1-264) ng/mL Total Bilirubin (0.2-1.3) mg/dL AST (14-36) U/L ALT (0-35) U/L Alkaline Phosphatase (38-126) U/L Serum Total Protein (6.3-8.2) g/dL Albumin (3.5-5.0) g/dL Vitamin B12 (239-931) pg/mL Folic Acid (2.76 - >20) ng/mL Urine Color (Yellow) Urine Appearance (Clear) Urine pH (4.6-8.0) Ur Specific [place] (1.005-1.030) Urine Protein (Negative) Urine Glucose (UA) (Negative) mg/dL Urine Ketones (Negative) Urine Blood (Negative) Urine Nitrite (Negative) Urine Bilirubin (Negative) Urine Urobilinogen (0.2) mg/dL Ur Leukocyte Esterase (Negative) U Hyaline Cast (Auto) (0-2) /LPF Urine Microscopic RBC (0-5) /HPF Urine Microscopic WBC (0-5) /HPF Ur Epithelial Cells (None Seen) /HPF Urine Bacteria (None Seen) /HPF Urine Culture Reflexed (NO) Slides for Path Review ABO Group Rh Factor Antibody Screen (NEGATIVE) Crossmatch COMPATIBLE COMPATIBLE (COMPATIBLE) 07/01/24 07/01/24 07/01/24 Range/Units 12:44 12:51 12:51 WBC (3.98-10.04) x10^3/uL RBC (3.93-5.22) x10^6/uL Hgb (11.2-15.7) g/dL Hct (34.1-44.9) % MCV (79.4-94.8) fL MCH (25.6-32.2) pg MCHC (32.2-35.5) g/dL RDW (11.7-14.4) % Plt Count (182-369) x10^3/uL MPV (9.4-12.3) fL Gran % (34.0-71.1) % Immature Gran % (Auto) (0.001-0.429) % Nucleat RBC Rel Count (0.00-0.2) % Eos # (Auto) (0.04-0.36) x10^3/uL Immature Gran # (Auto) (0.001-0.031) x10^3u/L Absolute Lymphs (auto) (1.18-3.74) x10^3/uL Absolute Monos (auto) (0.24-0.86) x10^3/uL Absolute Nucleated RBC (0.00-0.012) x10^3u/L Lymphocytes % (19.3-51.7) % Monocytes % (4.7-12.5) % Eosinophils % (0.7-5.8) % Basophils % (0.1-1.2) % Absolute Granulocytes (1.56-6.13) x10^3/uL Basophils # (0.01-0.08) x10^3/uL PT (9.4-12.5) SECONDS INR (0.8-3.0) APTT (25.1-36.5) SECONDS Sodium (135-145) mmol/L Sodium Direct (138-146) mmol/L Potassium (3.5-4.9) mmol/L Chloride (98-109) mmol/L Carbon Dioxide (24-29) mmol/L Anion Gap (5-15) MEQ/L BUN (7-17) mg/dL Venous BUN (8-26) mg/dL Creatinine (0.6-1.3) mg/dL Estimated GFR ML/MIN Glucose (70-105) mg/dL Calcium (8.4-10.2) mg/dL Ionized Calcium (1.12-1.32) mmol/L Iron 28 L (37-170) ug/dL TIBC 546 H (265-462) ug/dL Iron Saturation 5 L (20-39) % Ferritin 3.19 L (11.1-264) ng/mL Total Bilirubin (0.2-1.3) mg/dL AST (14-36) U/L ALT (0-35) U/L Alkaline Phosphatase (38-126) U/L Serum Total Protein (6.3-8.2) g/dL Albumin (3.5-5.0) g/dL Vitamin B12 376 (239-931) pg/mL Folic Acid 6.76 (2.76 - >20) ng/mL Urine Color Yellow (Yellow) Urine Appearance Clear (Clear) Urine pH 7.0 (4.6-8.0) Ur Specific [place] <=1.005 (1.005-1.030) Urine Protein Negative (Negative) Urine Glucose (UA) Negative (Negative) mg/dL Urine Ketones Negative (Negative) Urine Blood Negative (Negative) Urine Nitrite Negative (Negative) Urine Bilirubin Negative (Negative) Urine Urobilinogen 0.2 (0.2) mg/dL Ur Leukocyte Esterase Negative (Negative) U Hyaline Cast (Auto) NONE SEEN (0-2) /LPF Urine Microscopic RBC 0-2 (0-5) /HPF Urine Microscopic WBC 0-2 (0-5) /HPF Ur Epithelial Cells None Seen (None Seen) /HPF Urine Bacteria None Seen (None Seen) /HPF Urine Culture Reflexed NO (NO) Slides for Path Review ABO Group Rh Factor Antibody Screen (NEGATIVE) Crossmatch (COMPATIBLE) 07/02/24 07/02/24 Range/Units 05:05 05:05 WBC 6.1 (3.98-10.04) x10^3/uL RBC 4.70 (3.93-5.22) x10^6/uL Hgb 8.4 L D (11.2-15.7) g/dL Hct 30.2 L (34.1-44.9) % MCV 64.3 L D (79.4-94.8) fL MCH 17.9 L (25.6-32.2) pg MCHC 27.8 L (32.2-35.5) g/dL RDW 24.7 H (11.7-14.4) % Plt Count 413 H (182-369) x10^3/uL MPV 9.5 (9.4-12.3) fL Gran % 41.7 (34.0-71.1) % Immature Gran % (Auto) 1.3 H (0.001-0.429) % Nucleat RBC Rel Count 0.0 (0.00-0.2) % Eos # (Auto) 0.10 (0.04-0.36) x10^3/uL Immature Gran # (Auto) 0.08 H (0.001-0.031) x10^3u/L Absolute Lymphs (auto) 2.71 (1.18-3.74) x10^3/uL Absolute Monos (auto) 0.57 (0.24-0.86) x10^3/uL Absolute Nucleated RBC 0.00 (0.00-0.012) x10^3u/L Lymphocytes % 44.5 (19.3-51.7) % Monocytes % 9.4 (4.7-12.5) % Eosinophils % 1.6 (0.7-5.8) % Basophils % 1.5 H (0.1-1.2) % Absolute Granulocytes 2.54 (1.56-6.13) x10^3/uL Basophils # 0.09 H (0.01-0.08) x10^3/uL PT (9.4-12.5) SECONDS INR (0.8-3.0) APTT (25.1-36.5) SECONDS Sodium 139 (135-145) mmol/L Sodium Direct (138-146) mmol/L Potassium 3.5 (3.5-4.9) mmol/L Chloride 103 (98-109) mmol/L Carbon Dioxide 30 (24-29) mmol/L Anion Gap 9.5 (5-15) MEQ/L BUN 14 (7-17) mg/dL Venous BUN (8-26) mg/dL Creatinine 0.92 (0.6-1.3) mg/dL Estimated GFR 70.8 ML/MIN Glucose 104 (70-105) mg/dL Calcium 9.3 (8.4-10.2) mg/dL Ionized Calcium (1.12-1.32) mmol/L Iron (37-170) ug/dL TIBC (265-462) ug/dL Iron Saturation (20-39) % Ferritin (11.1-264) ng/mL Total Bilirubin 0.90 (0.2-1.3) mg/dL AST 30 (14-36) U/L ALT 18 (0-35) U/L Alkaline Phosphatase 44 (38-126) U/L Serum Total Protein 7.7 (6.3-8.2) g/dL Albumin 4.5 (3.5-5.0) g/dL Vitamin B12 (239-931) pg/mL Folic Acid (2.76 - >20) ng/mL Urine Color (Yellow) Urine Appearance (Clear) Urine pH (4.6-8.0) Ur Specific [place] (1.005-1.030) Urine Protein (Negative) Urine Glucose (UA) (Negative) mg/dL Urine Ketones (Negative) Urine Blood (Negative) Urine Nitrite (Negative) Urine Bilirubin (Negative) Urine Urobilinogen (0.2) mg/dL Ur Leukocyte Esterase (Negative) U Hyaline Cast (Auto) (0-2) /LPF Urine Microscopic RBC (0-5) /HPF Urine Microscopic WBC (0-5) /HPF Ur Epithelial Cells (None Seen) /HPF Urine Bacteria (None Seen) /HPF Urine Culture Reflexed (NO) Slides for Path Review ABO Group Rh Factor Antibody Screen (NEGATIVE) Crossmatch (COMPATIBLE) Multi-Disciplinary Progress Notes: Multi-Disciplinary Progress Notes 07/01/24 17:05 Respiratory Note by Aster Gill PT STATES SHE DOES NOT WANT TO TAKE HER BREZTRI WHILE SHE IS HERE AND DOES NOT WANT TO SUB ANY MEDS FOR IT. STATES SHE DOES NOT TAKE IT EVERYDAY. Initialized on 07/01/24 17:05 - END OF NOTE Assessment/Plan (1) Symptomatic anemia Current Visit: Yes Status: Acute Assessment & Plan: -CBC reviewed at 6.3 -TXM for 2 units of LPRBC with CBC 1 hour after transfusion -monitor closely- transfuse if hgb <7 -iron studies - patient previously on ferrous sulfate - stopped one week ago -occult stools -consider surgery consult -colonoscopy/egd scheduled OP for 07/13/24 -Avoid ASA/NSAIDS 07/02/24 -CBC reviewed and hgb improved to 8.4 following 2 units LPRBC -Iron sat reviewed at 5% ferritin at 3.19 - will start venofer - refer to hematology as OP Dr. Ortiz Code(s): D64.9 - ANEMIA, UNSPECIFIED (2) HTN (hypertension) Current Visit: Yes Status: Acute Assessment & Plan: -stable continue home meds Code(s): I10 - ESSENTIAL (PRIMARY) HYPERTENSION (3) HLD (hyperlipidemia) Current Visit: Yes Status: Acute Assessment & Plan: -continue Zetia Code(s): E78.5 - HYPERLIPIDEMIA, UNSPECIFIED (4) Chronic anemia Current Visit: Yes Status: Acute Assessment & Plan: -see symptomatic anemia Code(s): D64.9 - ANEMIA, UNSPECIFIED (5) Hypothyroid Current Visit: Yes Status: Acute Assessment & Plan: -continue home levothyroxine Code(s): E03.9 - HYPOTHYROIDISM, UNSPECIFIED (6) GERD (gastroesophageal reflux disease) Current Visit: Yes Status: Acute Assessment & Plan: -continue Protonix VTE: scd PPI: protonix Dispo: 1-2 days Code status: full Code(s): K21.9 - GASTRO-ESOPHAGEAL REFLUX DISEASE WITHOUT ESOPHAGITIS Code(s): D64.9 - ANEMIA, UNSPECIFIED (2) HTN (hypertension) Current Visit: Yes Status: Acute Code(s): I10 - ESSENTIAL (PRIMARY) HYPERTENSION (3) HLD (hyperlipidemia) Current Visit: Yes Status: Acute Code(s): E78.5 - HYPERLIPIDEMIA, UNSPECIFIED (4) Chronic anemia Current Visit: Yes Status: Acute Code(s): D64.9 - ANEMIA, UNSPECIFIED (5) Hypothyroid Current Visit: Yes Status: Acute Code(s): E03.9 - HYPOTHYROIDISM, UNSPECIFIED (6) GERD (gastroesophageal reflux disease) Current Visit: Yes Status: Acute Code(s): K21.9 - GASTRO-ESOPHAGEAL REFLUX DISEASE WITHOUT ESOPHAGITIS
[2024-07-02 06:08] LABS: Slide Review 1 YES
[2024-07-02 07:17] VITALS: RESP 16
[2024-07-02] MEDS: Lotensin PO SCH (09:44)
[2024-07-02] MEDS: Venofer 100 MG/5 ML*** 200 MG in Sodium Chloride 0.9% 100 ML IV SCH (09:44)
[2024-07-02] MEDS: Zetia 10 MG PO SCH (09:45)
[2024-07-02] MEDS: SYNTHROID 150 MCG PO SCH (09:46)
[2024-07-02] MEDS ORDERED: SYNTHROID 75 MCG PO SCH (10:00)
[2024-07-02 10:13] LABS: IFOB TEST RESULTS NEGATIVE (NEGATIVE)
[2024-07-02 11:35] VITALS: BP 136/64; PULSE 83; TEMP 98.4
--- NOTE | 2024-07-02 12:46 | PCM.DS ---
Discharge Summary Date of Admission: 07/01/24 14:05 Date of Discharge: 07/02/24 Admitting Physician: LEI CRUMP MD Primary Care Provider: IRAM SIERRA Allergies Allergies No Known Drug Allergies Allergy (Verified 07/01/24 11:38) Hospital Summary - Hospital Course Hospital Course: is a 59 year old female with a pmhx of HLD, HTN, hypothyroidism, and chronic anemia who presented to ED 07/01/24 under the advisement of her PCP after lab work was remarkable for hgb of 6.6. Patient states she had labwork back in March that showed a hgb of 7.4. She did not have insurance at that time and was unable to follow up. She reports that she is set up for an EGD/colonoscopy 07/13/24. She does endorse shortness of breath with exertion and fatigue but attributes it to her thyroid and hernia. She has had dark stools but was taking ferrous sulfate. At one time she had hemorrhoids with BRB when she wiped but has not had this in some time. Denies fever,hematuria, hematochezia, hematemesis, kim bleeding, cough, sob, cp, abdominal pain, ATKINSON, dizziness, N/V/D.Upon arrival vitals stable. Labs remarkable for hgb of 6.3. Chemistries and u/a un remarkable. Admission for symptomatic anemia. Plan for 2 units of PRBC. Will order iron studies off blood in lab and collect stools for occult blood. Possible surgery consult pending results. Patient received 2 units LPRBC with noted treatment response. Hemoglobin now stable at 8.4. Iron saturation and ferritin levels low. Will give a dose of venofer while IP. Advised follow up with Dr. Ortiz -hematology for evaluation of iron deficiency anemia and iron infusions. Patient is agreeable to plan. Occult stools are negative. She is advised to keep scheduled EGD/colonoscopy 07/13/24. Discharge Note New Diagnosis: Symptomatic anemia New Medications:ferrous sulfate Follow Up: hematology/pcp -follow up CBC Latest Assessment & Plan (1) Symptomatic anemia Current Visit: Yes Status: Acute Assessment & Plan: -CBC reviewed at 6.3 -TXM for 2 units of LPRBC with CBC 1 hour after transfusion -monitor closely- transfuse if hgb <7 -iron studies - patient previously on ferrous sulfate - stopped one week ago -occult stools -consider surgery consult -colonoscopy/egd scheduled OP for 07/13/24 -Avoid ASA/NSAIDS 07/02/24 -CBC reviewed and hgb improved to 8.4 following 2 units LPRBC -Iron sat reviewed at 5% ferritin at 3.19 - will start venofer - refer to hematology as OP Dr. Ortiz Code(s): D64.9 - ANEMIA, UNSPECIFIED (2) HTN (hypertension) Current Visit: Yes Status: Acute Assessment & Plan: -stable continue home meds Code(s): I10 - ESSENTIAL (PRIMARY) HYPERTENSION (3) HLD (hyperlipidemia) Current Visit: Yes Status: Acute Assessment & Plan: -continue Zetia Code(s): E78.5 - HYPERLIPIDEMIA, UNSPECIFIED (4) Chronic anemia Current Visit: Yes Status: Acute Assessment & Plan: -see symptomatic anemia Code(s): D64.9 - ANEMIA, UNSPECIFIED (5) Hypothyroid Current Visit: Yes Status: Acute Assessment & Plan: -continue home levothyroxine Code(s): E03.9 - HYPOTHYROIDISM, UNSPECIFIED (6) GERD (gastroesophageal reflux disease) Current Visit: Yes Status: Acute Assessment & Plan: -continue Protonix VTE: scd PPI: protonix Dispo: 1-2 days Code status: full I spent 35 minutes [id number] with the patient on the day of discharge performing discharge exam, discussing hospital stay and discharge instructions with patient and caregivers, preparation of discharge records, prescriptions & referral forms and addressing any questions/concerns the patient had as documented above. - Vitals & Intake/Output Vital Signs: Vital Signs Temperature 98.4 F 07/02/24 11:34 Pulse Rate 83 07/02/24 11:34 Respiratory Rate 16 07/02/24 11:34 Blood Pressure 136/64 07/02/24 11:34 O2 Sat by Pulse Oximetry 97 07/02/24 11:34 Intake & Output: Intake & Output 06/30/24 07/01/24 07/02/24 07/03/24 11:59 11:59 11:59 11:59 Intake Total 1901 Balance 1901 Weight 99.5 kg 98.9 kg - Lab Result Diagrams: 07/02/24 05:05 07/02/24 05:05 Lab Results-Last 24 Hrs: Lab Results-Last 24 Hours 07/01/24 07/01/24 07/01/24 Range/Units 10:06 11:51 11:51 WBC (3.98-10.04) x10^3/uL RBC (3.93-5.22) x10^6/uL Hgb (11.2-15.7) g/dL Hct (34.1-44.9) % MCV (79.4-94.8) fL MCH (25.6-32.2) pg MCHC (32.2-35.5) g/dL RDW (11.7-14.4) % Plt Count (182-369) x10^3/uL MPV (9.4-12.3) fL Gran % (34.0-71.1) % Immature Gran % (Auto) (0.001-0.429) % Nucleat RBC Rel Count (0.00-0.2) % Eos # (Auto) (0.04-0.36) x10^3/uL Immature Gran # (Auto) (0.001-0.031) x10^3u/L Absolute Lymphs (auto) (1.18-3.74) x10^3/uL Absolute Monos (auto) (0.24-0.86) x10^3/uL Absolute Nucleated RBC (0.00-0.012) x10^3u/L Lymphocytes % (19.3-51.7) % Monocytes % (4.7-12.5) % Eosinophils % (0.7-5.8) % Basophils % (0.1-1.2) % Absolute Granulocytes (1.56-6.13) x10^3/uL Basophils # (0.01-0.08) x10^3/uL Sodium (135-145) mmol/L Potassium (3.5-5.1) mmol/L Chloride (98-107) mmol/L Carbon Dioxide (22-30) mmol/L Anion Gap (5-15) MEQ/L BUN (7-17) mg/dL Creatinine (0.52-1.04) mg/dL Estimated GFR ML/MIN Glucose (74-106) mg/dL Calcium (8.4-10.2) mg/dL Iron (37-170) ug/dL TIBC (265-462) ug/dL Iron Saturation (20-39) % Ferritin (11.1-264) ng/mL Total Bilirubin (0.2-1.3) mg/dL AST (14-36) U/L ALT (0-35) U/L Alkaline Phosphatase (38-126) U/L Serum Total Protein (6.3-8.2) g/dL Albumin (3.5-5.0) g/dL Vitamin B12 (239-931) pg/mL Folic Acid (2.76 - >20) ng/mL Urine Color (Yellow) Urine Appearance (Clear) Urine pH (4.6-8.0) Ur Specific [place] (1.005-1.030) Urine Protein (Negative) Urine Glucose (UA) (Negative) mg/dL Urine Ketones (Negative) Urine Blood (Negative) Urine Nitrite (Negative) Urine Bilirubin (Negative) Urine Urobilinogen (0.2) mg/dL Ur Leukocyte Esterase (Negative) U Hyaline Cast (Auto) (0-2) /LPF Urine Microscopic RBC (0-5) /HPF Urine Microscopic WBC (0-5) /HPF Ur Epithelial Cells (None Seen) /HPF Urine Bacteria (None Seen) /HPF Urine Culture Reflexed (NO) Stl Occult Blood (IFOB) NEGATIVE (NEGATIVE) Slides for Path Review YES ABO Group A Rh Factor POSITIVE Antibody Screen NEGATIVE (NEGATIVE) Crossmatch (COMPATIBLE) 07/01/24 07/01/24 07/01/24 Range/Units 11:51 11:51 12:44 WBC (3.98-10.04) x10^3/uL RBC (3.93-5.22) x10^6/uL Hgb (11.2-15.7) g/dL Hct (34.1-44.9) % MCV (79.4-94.8) fL MCH (25.6-32.2) pg MCHC (32.2-35.5) g/dL RDW (11.7-14.4) % Plt Count (182-369) x10^3/uL MPV (9.4-12.3) fL Gran % (34.0-71.1) % Immature Gran % (Auto) (0.001-0.429) % Nucleat RBC Rel Count (0.00-0.2) % Eos # (Auto) (0.04-0.36) x10^3/uL Immature Gran # (Auto) (0.001-0.031) x10^3u/L Absolute Lymphs (auto) (1.18-3.74) x10^3/uL Absolute Monos (auto) (0.24-0.86) x10^3/uL Absolute Nucleated RBC (0.00-0.012) x10^3u/L Lymphocytes % (19.3-51.7) % Monocytes % (4.7-12.5) % Eosinophils % (0.7-5.8) % Basophils % (0.1-1.2) % Absolute Granulocytes (1.56-6.13) x10^3/uL Basophils # (0.01-0.08) x10^3/uL Sodium (135-145) mmol/L Potassium (3.5-5.1) mmol/L Chloride (98-107) mmol/L Carbon Dioxide (22-30) mmol/L Anion Gap (5-15) MEQ/L BUN (7-17) mg/dL Creatinine (0.52-1.04) mg/dL Estimated GFR ML/MIN Glucose (74-106) mg/dL Calcium (8.4-10.2) mg/dL Iron (37-170) ug/dL TIBC (265-462) ug/dL Iron Saturation (20-39) % Ferritin (11.1-264) ng/mL Total Bilirubin (0.2-1.3) mg/dL AST (14-36) U/L ALT (0-35) U/L Alkaline Phosphatase (38-126) U/L Serum Total Protein (6.3-8.2) g/dL Albumin (3.5-5.0) g/dL Vitamin B12 (239-931) pg/mL Folic Acid (2.76 - >20) ng/mL Urine Color Yellow (Yellow) Urine Appearance Clear (Clear) Urine pH 7.0 (4.6-8.0) Ur Specific [place] <=1.005 (1.005-1.030) Urine Protein Negative (Negative) Urine Glucose (UA) Negative (Negative) mg/dL Urine Ketones Negative (Negative) Urine Blood Negative (Negative) Urine Nitrite Negative (Negative) Urine Bilirubin Negative (Negative) Urine Urobilinogen 0.2 (0.2) mg/dL Ur Leukocyte Esterase Negative (Negative) U Hyaline Cast (Auto) NONE SEEN (0-2) /LPF Urine Microscopic RBC 0-2 (0-5) /HPF Urine Microscopic WBC 0-2 (0-5) /HPF Ur Epithelial Cells None Seen (None Seen) /HPF Urine Bacteria None Seen (None Seen) /HPF Urine Culture Reflexed NO (NO) Stl Occult Blood (IFOB) (NEGATIVE) Slides for Path Review ABO Group Rh Factor Antibody Screen (NEGATIVE) Crossmatch COMPATIBLE COMPATIBLE (COMPATIBLE) 07/01/24 07/01/24 07/02/24 Range/Units 12:51 12:51 05:05 WBC 6.1 (3.98-10.04) x10^3/uL RBC 4.70 (3.93-5.22) x10^6/uL Hgb 8.4 L D (11.2-15.7) g/dL Hct 30.2 L (34.1-44.9) % MCV 64.3 L D (79.4-94.8) fL MCH 17.9 L (25.6-32.2) pg MCHC 27.8 L (32.2-35.5) g/dL RDW 24.7 H (11.7-14.4) % Plt Count 413 H (182-369) x10^3/uL MPV 9.5 (9.4-12.3) fL Gran % 41.7 (34.0-71.1) % Immature Gran % (Auto) 1.3 H (0.001-0.429) % Nucleat RBC Rel Count 0.0 (0.00-0.2) % Eos # (Auto) 0.10 (0.04-0.36) x10^3/uL Immature Gran # (Auto) 0.08 H (0.001-0.031) x10^3u/L Absolute Lymphs (auto) 2.71 (1.18-3.74) x10^3/uL Absolute Monos (auto) 0.57 (0.24-0.86) x10^3/uL Absolute Nucleated RBC 0.00 (0.00-0.012) x10^3u/L Lymphocytes % 44.5 (19.3-51.7) % Monocytes % 9.4 (4.7-12.5) % Eosinophils % 1.6 (0.7-5.8) % Basophils % 1.5 H (0.1-1.2) % Absolute Granulocytes 2.54 (1.56-6.13) x10^3/uL Basophils # 0.09 H (0.01-0.08) x10^3/uL Sodium (135-145) mmol/L Potassium (3.5-5.1) mmol/L Chloride (98-107) mmol/L Carbon Dioxide (22-30) mmol/L Anion Gap (5-15) MEQ/L BUN (7-17) mg/dL Creatinine (0.52-1.04) mg/dL Estimated GFR ML/MIN Glucose (74-106) mg/dL Calcium (8.4-10.2) mg/dL Iron 28 L (37-170) ug/dL TIBC 546 H (265-462) ug/dL Iron Saturation 5 L (20-39) % Ferritin 3.19 L (11.1-264) ng/mL Total Bilirubin (0.2-1.3) mg/dL AST (14-36) U/L ALT (0-35) U/L Alkaline Phosphatase (38-126) U/L Serum Total Protein (6.3-8.2) g/dL Albumin (3.5-5.0) g/dL Vitamin B12 376 (239-931) pg/mL Folic Acid 6.76 (2.76 - >20) ng/mL Urine Color (Yellow) Urine Appearance (Clear) Urine pH (4.6-8.0) Ur Specific [place] (1.005-1.030) Urine Protein (Negative) Urine Glucose (UA) (Negative) mg/dL Urine Ketones (Negative) Urine Blood (Negative) Urine Nitrite (Negative) Urine Bilirubin (Negative) Urine Urobilinogen (0.2) mg/dL Ur Leukocyte Esterase (Negative) U Hyaline Cast (Auto) (0-2) /LPF Urine Microscopic RBC (0-5) /HPF Urine Microscopic WBC (0-5) /HPF Ur Epithelial Cells (None Seen) /HPF Urine Bacteria (None Seen) /HPF Urine Culture Reflexed (NO) Stl Occult Blood (IFOB) (NEGATIVE) Slides for Path Review YES ABO Group Rh Factor Antibody Screen (NEGATIVE) Crossmatch (COMPATIBLE) 07/02/24 Range/Units 05:05 WBC (3.98-10.04) x10^3/uL RBC (3.93-5.22) x10^6/uL Hgb (11.2-15.7) g/dL Hct (34.1-44.9) % MCV (79.4-94.8) fL MCH (25.6-32.2) pg MCHC (32.2-35.5) g/dL RDW (11.7-14.4) % Plt Count (182-369) x10^3/uL MPV (9.4-12.3) fL Gran % (34.0-71.1) % Immature Gran % (Auto) (0.001-0.429) % Nucleat RBC Rel Count (0.00-0.2) % Eos # (Auto) (0.04-0.36) x10^3/uL Immature Gran # (Auto) (0.001-0.031) x10^3u/L Absolute Lymphs (auto) (1.18-3.74) x10^3/uL Absolute Monos (auto) (0.24-0.86) x10^3/uL Absolute Nucleated RBC (0.00-0.012) x10^3u/L Lymphocytes % (19.3-51.7) % Monocytes % (4.7-12.5) % Eosinophils % (0.7-5.8) % Basophils % (0.1-1.2) % Absolute Granulocytes (1.56-6.13) x10^3/uL Basophils # (0.01-0.08) x10^3/uL Sodium 139 (135-145) mmol/L Potassium 3.5 (3.5-5.1) mmol/L Chloride 103 (98-107) mmol/L Carbon Dioxide 30 (22-30) mmol/L Anion Gap 9.5 (5-15) MEQ/L BUN 14 (7-17) mg/dL Creatinine 0.92 (0.52-1.04) mg/dL Estimated GFR 70.8 ML/MIN Glucose 104 (74-106) mg/dL Calcium 9.3 (8.4-10.2) mg/dL Iron (37-170) ug/dL TIBC (265-462) ug/dL Iron Saturation (20-39) % Ferritin (11.1-264) ng/mL Total Bilirubin 0.90 (0.2-1.3) mg/dL AST 30 (14-36) U/L ALT 18 (0-35) U/L Alkaline Phosphatase 44 (38-126) U/L Serum Total Protein 7.7 (6.3-8.2) g/dL Albumin 4.5 (3.5-5.0) g/dL Vitamin B12 (239-931) pg/mL Folic Acid (2.76 - >20) ng/mL Urine Color (Yellow) Urine Appearance (Clear) Urine pH (4.6-8.0) Ur Specific [place] (1.005-1.030) Urine Protein (Negative) Urine Glucose (UA) (Negative) mg/dL Urine Ketones (Negative) Urine Blood (Negative) Urine Nitrite (Negative) Urine Bilirubin (Negative) Urine Urobilinogen (0.2) mg/dL Ur Leukocyte Esterase (Negative) U Hyaline Cast (Auto) (0-2) /LPF Urine Microscopic RBC (0-5) /HPF Urine Microscopic WBC (0-5) /HPF Ur Epithelial Cells (None Seen) /HPF Urine Bacteria (None Seen) /HPF Urine Culture Reflexed (NO) Stl Occult Blood (IFOB) (NEGATIVE) Slides for Path Review ABO Group Rh Factor Antibody Screen (NEGATIVE) Crossmatch (COMPATIBLE) - Procedures and Test Procedures and Tests throughout Hospitalization: Therapy Orders & Screens 07/01/24 16:56 Respiratory Therapy Assessment DAILY Comment: Diagnosis: Symptomatic anemia 07/01/24 16:57 BiPap/CPAP ROUTINE Comment: PT HOME UNIT Diagnosis: Symptomatic anemia Discharge Exam General Appearance: no apparent distress Neurologic Exam: alert, oriented x 3, cooperative Eye Exam: PERRL Ears, Nose, Throat Exam: normal ENT inspection Neck Exam: normal inspection Respiratory Exam: normal breath sounds, lungs clear Cardiovascular Exam: regular rate/rhythm, normal heart sounds Gastrointestinal/Abdomen Exam: soft, normal bowel sounds, hernia Pelvic Exam: deferred Rectal Exam: deferred Back Exam: normal inspection Extremity Exam: normal inspection Skin Exam: pale Final Diagnosis/Problem List - Final Discharge Diagnosis/Problem (1) Symptomatic anemia Current Visit: Yes Status: Acute Code(s): D64.9 - ANEMIA, UNSPECIFIED (2) HTN (hypertension) Current Visit: Yes Status: Acute Code(s): I10 - ESSENTIAL (PRIMARY) HYPERTENSION (3) HLD (hyperlipidemia) Current Visit: Yes Status: Acute Code(s): E78.5 - HYPERLIPIDEMIA, UNSPECIFIED (4) Chronic anemia Current Visit: Yes Status: Acute Code(s): D64.9 - ANEMIA, UNSPECIFIED (5) Hypothyroid Current Visit: Yes Status: Acute Code(s): E03.9 - HYPOTHYROIDISM, UNSPECIFIED (6) GERD (gastroesophageal reflux disease) Current Visit: Yes Status: Acute Code(s): K21.9 - GASTRO-ESOPHAGEAL REFLUX DISEASE WITHOUT ESOPHAGITIS - Discharge Discharge Date: 07/02/24 Disposition: Home, Self-Care Condition: Stable Prescriptions: Continue Benazepril HCl [Lotensin] 10 mg PO DAILY Levothyroxine Sodium 75 Mcg [Synthroid 75 Mcg] 150 mcg PO DAILY Ferrous Sulfate 325 mg [Feosol 325 mg] 325 mg PO TID Trazodone HCl 50 mg [Desyrel 50 mg] 50 mg PO HS Ezetimibe 10 mg [Zetia 10 MG] 1 tab PO DAILY Budesonide/Glycopyr/Formoterol [Breztri Aerosphere Inhaler] 2 puff IH BID Acetaminophen 500 mg [Tylenol Extra Strength 500 mg] 100 mg PO Q6HPRN PRN PRN Reason: Pain Esomeprazole Magnesium [Nexium 24Hr] 1 cap PO DAILY Albuterol Sulfate [Albuterol Sulfate Hfa] 1 puff IH Q4H PRN PRN PRN Reason: Shortness Of Breath Additional Instructions: Call PCP for repeat CBC on Saturday to check hemoglobin levels Follow up with: IRAM SIERRA [Primary Care Provider] - SKIP ORTIZ MD [NON-STAFF PHY W/O PRIVILEGES] -
[2024-07-02 13:20] VITALS: O2SAT 100
== END 2024-07-02 13:59 | disposition home or self-care (01) ==
LOC: ED 11:24 → MED SURG 14:05
PROVIDERS: ADMIT Internal Medicine; ATTEND Internal Medicine
DX: D64.9 Anemia, unspecified (principal); I10 Essential (primary) hypertension; E78.5 Hyperlipidemia, unspecified; E03.9 Hypothyroidism, unspecified; K21.9 Gastro-esophageal reflux disease without esophagitis; R06.02 Shortness of breath; K44.9 Diaphragmatic hernia without obstruction or gangrene; Z79.899 Other long term (current) drug therapy
CPT/HCPCS: 36415; 36430; 80047; 80053; 81001; 82274; 82607; 82728; 82746; 83540; 83550; 85025; 85610; 85730; 86850; 86900; 86901; 86922; 93041; 93268; 94760; 96374; 99283; 99285; J1756; J1940; P9016; Q3014; A9270-GY; G0328; G0378

== ENCOUNTER 2024-07-13 10:47 | Day surgery (SDC) | payer OTHER ==
--- NOTE | 2024-07-13 08:46 | HP ---
HISTORY OF PRESENT ILLNESS: A 59-year-old with COPD, Karl's, sleep apnea, hypothyroidism, type 2 diabetes, hyperlipidemia, history of reflux, with a little bit of increased reflux. History of hiatal hernia reportedly but no films to reviewed in our office visit. She is in need of upper endoscopy. She has not had a recent one. PAST MEDICAL HISTORY: As mentioned above. PAST SURGICAL HISTORY: She had a section, ankle surgery. Had tubal in the past. No recent colonoscopy. FAMILY HISTORY: Questioned whether her grandfather had colon cancer. Not sure if there is any colon cancer in her grandfather SOCIAL HISTORY: Former smoker. No alcohol abuse. MEDICATIONS: Levothyroxine, albuterol sulfate, trazodone, Nexium, benazepril. ALLERGIES: No known drug allergies. REVIEW OF SYSTEMS: Twelve systems reviewed. Pertinent significant for having COPD, thyroid disease, diabetes, hyperlipidemia, some reflux. PHYSICAL EXAMINATION: GENERAL: Height 5 feet 4 inches. BMI 36. Chronically ill female. No acute distress. HEENT: Sclerae nonicteric. NECK: No JVD. CHEST: Equal excursion. Breath sounds symmetrical. CARDIOVASCULAR: Regular rate and rhythm. ABDOMEN: Soft. EXTREMITIES: No cyanosis. NEUROLOGIC: Alert. PSYCHIATRIC: Appropriate mood and affect. RECTAL: She has some external tags and hemorrhoids. IMPRESSION: Increased reflux, history of hiatal hernia. No films were available to review in the office visit. Feel she would benefit from upper endoscopy. General risks of bleeding and infection; risk of bowel injury or perforation, risk of missed or nondiagnosis or incomplete exam possibly requiring barium enema or other studies or procedures; risk of cardiopulmonary comorbidities. We will proceed with EGD and possible biopsy under MAC anesthesia as an outpatient. She is in need of screening colonoscopy; however, patient wants to hold off on any possible colonoscopy or possible internal hemorrhoid banding at this time. She only wants to proceed with upper endoscopy. Will proceed with EGD, possible biopsy as an outpatient under MAC anesthesia. Otherwise, continue medications for hyperlipidemia, COPD, reflux, thyroid disease, diabetes.
[2024-07-13] MEDS ORDERED: Lactated Ringers 1,000 ML IV ONE (10:56)
[2024-07-13] MEDS: Lactated Ringers 1,000 ML IV SCH (10:56)
[2024-07-13 11:27] LABS: Absolute Neutrophil Ct (ANC) 3.77 x10^3/uL (1.56-6.13); BASOPHIL % 1.2 % (0.1-1.2); Basophil (Absolute #) 0.08 x10^3/uL (0.01-0.08); Eosinophil % 1.2 % (0.7-5.8); Eosinophil (Absolute #) 0.08 x10^3/uL (0.04-0.36); Hematocrit 40.5 % (34.1-44.9); Hemoglobin 11.5 g/dL (11.2-15.7); IMMATURE GRAN # 0.02 x10^3u/L (0.001-0.031); IMMATURE GRAN % 0.3 % (0.001-0.429); Lymphocyte (Absolute #) 2.16 x10^3/uL (1.18-3.74); Lymphocytes % 33.1 % (19.3-51.7); Mean Cell Volume 67.4 fL (79.4-94.8); Mean Corpuscular Hemoglobin 19.1 pg (25.6-32.2); Mean Corpuscular Hgb Concent. 28.4 g/dL (32.2-35.5); Mean Platelet Volume 9.7 fL (9.4-12.3); Monocyte (Absolute #) 0.41 x10^3/uL (0.24-0.86); Monocytes % 6.3 % (4.7-12.5); Neutrophil % 57.9 % (34.0-71.1); Platelet Count 486 x10^3/uL (182-369); Red Blood Count 6.01 x10^6/uL (3.93-5.22); Red Cell Distribution Width 31.3 % (11.7-14.4); White Blood Count 6.5 x10^3/uL (3.98-10.04)
[2024-07-13 11:37] LABS: ANION GAP 17.2 MEQ/L (5-15); Calcium 10.5 mg/dL (8.4-10.2); Creatinine 1 0.72 mg/dL (0.52-1.04); EST GLOMERULAR FILTRATION RATE 95.1 ML/MIN; Potassium 4.7 mmol/L (3.5-5.1)
[2024-07-13 12:21] LABS: Slide Review 1 YES
[2024-07-13] MEDS ORDERED: Versed 2 MG/2 ML Injection ONE (13:21)
[2024-07-13] MEDS ORDERED: propofoL IV ONE ×2 (13:21→13:33)
[2024-07-13 14:26] VITALS: RESP 18
[2024-07-13 14:36] VITALS: BP 132/53; PULSE 94; TEMP 97.2; O2SAT 98
--- NOTE | 2024-07-14 09:48 | OP ---
THIS REPORT WAS AMENDED ON 07/20/2024 BY . SURGERY DATE/TIME: 07/13/2024 [id number] PREOPERATIVE DIAGNOSES: 1) Some increased reflux. History of hiatal hernia. 2) Need for screening colonoscopy. History of some internal and external hemorrhoids with some prolapse. POSTOPERATIVE DIAGNOSES: 1) ASA class 3. 2) Minimal mild gastritis. 3) Medium-sized hiatal hernia. 4) Short segment distal esophagitis. 5) Gastroesophageal junction at 30 cm. 6) Diverticulosis, left colon. 7) Fair bowel prep. 8) Small raised area versus early polyp, ascending colon. 9) Small polyps versus hyperplastic lesions in the rectum x4. PROCEDURE: 1) EGD with cold biopsy antrum for Helicobacter pylori. 2) Cold biopsy distal esophagus. 3) Colonoscopy to ileum. 4) Retrograde ileoscopy. 5) Hot biopsy ascending colon. 6) Hot biopsy polypectomy rectal polyp. 7) Internal hemorrhoid banding X 3 columns. SURGEON: Sal Saldivar MD. ANESTHESIA: MAC. ESTIMATED BLOOD LOSS: Minimal. INDICATIONS: As noted above, consent obtained. DESCRIPTION OF PROCEDURE AND FINDINGS: Patient was taken to the endoscopy room. MAC anesthesia was induced. After official time-out, no disagreement in planned procedure. Bite block positioned. Video gastroscope easily passed down the esophagus through the patent pylorus to the junction of the third and fourth portions of the duodenum. The duodenum was grossly unremarkable. Scope pulled back into the stomach. She had some mild gastritis and gastric erythema. Cold biopsy was taken to evaluate for H pylori. Good hemostasis was noted. On retroflex, she did have some evidence of gastritis. She had a medium hiatal hernia. The scope was straightened, pulled back. The GE junction was at about 30 cm. There was 1 small 2 or 3 mm ulcerated area without any evidence of any mass but did have a short segment distal esophagitis. The remainder of the esophagus was grossly unremarkable. The scope was withdrawn. Attention was then turned to colonoscopy. Digital rectal exam revealed some internal hemorrhoids, grade 2 in nature. She had a little bit more prominent external component than internal component, but did have a general component of some prolapse. Videocolonoscope was then passed up through the tortuous sigmoid, descending, transverse, and ascending colon around to the cecum. Appendiceal orifice and valve well visualized and photo documented. Scope passed up to the terminal ileum, grossly unremarkable. The scope was then carefully withdrawn over the next 12 minutes. Prep overall was fair. There was a little bit of solid stool and a little bit of some liquidy stool throughout the colon, just limiting exam for very small lesions. This was irrigated and suctioned clear as possible. The scope was carefully withdrawn. In the ascending colon, a very small raised lesion versus early polyp or inflammation. This was removed with hot biopsy forceps. Good hemostasis was noted. Scope pulled back around the left colon. She had some small diverticulosis in the left colon. Scope pulled back down to the rectum, and there were 4 small early polyps versus hyperplastic lesions x4, removed with hot biopsy polypectomy. Good hemostasis was noted. Again, the patient did have internal and external hemorrhoids. She requested a trial of banding. They are at least grade 2 in nature. At this point, the scope was withdrawn. Half-miller retractor was lubricated. Half-miller retractor was carefully inserted and first turned to the left lateral. Suction filling layer up was used to place the band at the top edge of the internal hemorrhoid in the left lateral, then the right posterior, and then the right interior, 3 bands, 3 columns. It should be noted she did have a moderate external component and did have an external tag. She understood the banding does not treat the external component. She understood this preoperatively if she kept having problems down the road she could consider excisional therapy. There was no family here to discuss the findings with.
== END 2024-07-13 14:46 | disposition home or self-care (01) ==
LOC: SDC 10:47
PROVIDERS: ATTEND Surgery
DX: Z12.11 Encounter for screening for malignant neoplasm of colon (principal); K21.9 Gastro-esophageal reflux disease without esophagitis; Z87.19 Personal history of other diseases of the digestive system; Z87.760 Personal history of (corrected) congenital diaphragmatic hernia or other congenital diaphragm malformations; E11.9 Type 2 diabetes mellitus without complications; K29.70 Gastritis, unspecified, without bleeding; K44.9 Diaphragmatic hernia without obstruction or gangrene; K20.90 Esophagitis, unspecified without bleeding; K57.30 Diverticulosis of large intestine without perforation or abscess without bleeding; K63.5 Polyp of colon; K62.1 Rectal polyp; K64.8 Other hemorrhoids; K64.4 Residual hemorrhoidal skin tags
CPT/HCPCS: 36415; 80048; 85025; 93005; J2250; J2704